=== PATIENT | male | born 1990 | race Caucasian/White ===

== ENCOUNTER 2020-09-14 19:50 | Emergency (ER) | payer MEDICARE ==
--- NOTE | 2020-09-14 20:28 | ER Document Report ---
ED Medical Screen (RME) - General Stated Complaint: POSSIBLE ABSCESS ON BOTTOX AND GROIN Time Seen by Provider: 09/14/20 20:19 Mode of Arrival: Ambulatory Information source: Patient Notes: HPI; 30-year-old male presents to the emergency room concerned about a possible abscess to his left buttock area that he has had for the past 3 days. No injury that he is aware of. No history of previous abscesses. States has been getting bigger and more painful. States his girlfriend tried to pop it without success. Denies any fevers. No nausea, no vomiting. PE: Alert and oriented x3. Lungs: Clear to auscultation without rales, rhonchi, wheezes. Heart: Regular rate rhythm without murmurs, rubs, gallops. Unable to do full exam in triage. I have greeted and performed a rapid initial assessment of this patient. A comprehensive ED assessment and evaluation of the patient, analysis of test results and completion of the medical decision making process will be conducted by additional ED providers. I have specifically instructed the patient or family members with the patient to immediately return to any nursing staff should anything change in the patient's condition or with their chief complaint. TRAVEL OUTSIDE OF THE [place] IN LAST 30 DAYS: No Physical Exam - Vital signs Vitals: Temp Pulse Resp BP Pulse Ox 98.6 F 87 20 138/61 H 98 09/14/20 20:00 09/14/20 20:00 09/14/20 20:00 09/14/20 20:00 09/14/20 20:00 Course - Vital Signs Vital signs: Temp Pulse Resp BP Pulse Ox 98.6 F 87 20 138/61 H 98 09/14/20 20:00 09/14/20 20:00 09/14/20 20:00 09/14/20 20:00 09/14/20 20:00
[2020-09-14] MEDS ORDERED: OXYCODONE-ACETAMINOPHEN 5-325 MG TABLET PO ONE (20:51)
[2020-09-14] MEDS ORDERED: LIDOCAINE 1%/EPINEPHRINE INJ 20 ML VIAL INJ ONE (20:51)
[2020-09-14] MEDS ORDERED: PROMETHAZINE HCL 25 MG TABLET PO ONE (20:51)
--- NOTE | 2020-09-14 20:53 | ER Document Report ---
ED Skin Rash/Insect Bite/Abscs - General Chief Complaint: Abscess Stated Complaint: POSSIBLE ABSCESS ON BOTTOX AND GROIN Time Seen by Provider: 09/14/20 20:19 Primary Care Provider: [facility] [Provider Group] - 09/16/20 Mode of Arrival: Ambulatory Notes: Patient is a 30-year-old male who comes emergency department for chief complaint of a suspected abscess to his left mid buttock area. This is been present for approximately 3 days and worsening with swelling and pain. Patient states that he has been cleaning this and putting warm compresses, he states he did get some mixed drainage out but this is still worsening. He denies fever/chills, nausea/vomiting, or any generalized sick symptoms. He states he has had abscesses in the axillary area in the past but they always resolved on their own. He denies any daily medications or diagnosed medical history. He denies any other complaints. TRAVEL OUTSIDE OF THE [place] IN LAST 30 DAYS: No - Related Data Allergies/Adverse Reactions: No Known Allergies Allergy (Verified 09/14/20 20:38) Past Medical History - General Information source: Patient - Social History Smoking Status: Current Every Day Smoker Frequency of alcohol use: None Drug Abuse: Marijuana Lives with: Family Family History: Reviewed & Not Pertinent Patient has homicidal ideation: No Review of Systems - Review of Systems Constitutional: No symptoms reported EENT: No symptoms reported Cardiovascular: No symptoms reported Respiratory: No symptoms reported Gastrointestinal: No symptoms reported Genitourinary: No symptoms reported Male Genitourinary: No symptoms reported Musculoskeletal: No symptoms reported Skin: See HPI Hematologic/Lymphatic: No symptoms reported Neurological/Psychological: No symptoms reported Physical Exam - Vital signs Vitals: Temp Pulse Resp BP Pulse Ox 98.6 F 87 20 138/61 H 98 09/14/20 20:00 09/14/20 20:00 09/14/20 20:00 09/14/20 20:00 09/14/20 20:00 - Notes Notes: GENERAL: Alert, interacts well. No acute distress. HEAD: Normocephalic, atraumatic. EYES: Pupils equal, round, and reactive to light. Extraocular movements intact. ENT: Oral mucosa moist, tongue midline. Oropharynx unremarkable. Airway patent. NECK: Full range of motion. Supple. Trachea midline. No lymphadenopathy. LUNGS: Clear to auscultation bilaterally, no wheezes, rales, or rhonchi. No respiratory distress. Non-tender chest wall. HEART: Regular rate and rhythm. No murmur ABDOMEN: Soft, non-tender. Non-distended. EXTREMITIES: Moves all 4 extremities spontaneously. No edema, normal radial and dorsalis pedis pulses bilaterally. No cyanosis. BACK: no cervical, thoracic, lumbar midline tenderness. No saddle anesthesia, normal distal neurovascular exam. Moves all extremities in full range of motion. NEUROLOGICAL: Alert and oriented x3. Normal speech. Cranial nerves II through XII grossly intact. Strength 5/5 in all extremities. PSYCH: Normal affect, normal mood. SKIN: In the left mid lower buttock there is a circular area with necrotic skin over the top, surrounding induration and mild surrounding erythema. There is no extending erythema down to the midline, there is no evidence of perianal abscess. No other concerning findings. Course - Re-evaluation Re-evalutation: Patient with necrotic skin over the top of an indurated abscess with mild surrounding cellulitis. This is most suggestive of MRSA infection. Patient with unremarkable vital signs, unremarkable exam otherwise, no concerning symptoms reported otherwise. Area was cut open by removing the core and tissue, there was some tunneling noted in the area was cleansed and packed. Air was dressed and patient was referred to the surgical clinic as well as placed on Bactrim. I discussed the care of the wound in detail, discussed follow-up instructions, discussed return precautions at length. Patient states understanding and agreement. - Vital Signs Vital signs: Temp Pulse Resp BP Pulse Ox 98.4 F 84 18 132/60 H 98 09/14/20 22:30 09/14/20 22:30 09/14/20 22:30 09/14/20 22:30 09/14/20 22:30 Procedures - Incision and Drainage Left buttock Type: Single Anesthetic type: 1% Lidocaine w/epi mL's of anesthetic: 8 Blade size: 11 I&D procedure: Shurclens applied, Iodoform packing placed, Sterile dressing applied Incision Method: Incision made with needle Amount/type of drainage: Minimal amount of purulent drainage and bleeding; necrotic tissue removed Discharge - Discharge Clinical Impression: Abscess Condition: Stable Disposition: HOME, SELF-CARE Instructions: Oral Narcotic Medication ([facility]) Additional Instructions: The abscess and tissue had to be opened, drained, removed. The area is been packed. It is important that the packing is removed in 3 days, do not l eave the packing in longer than 3 days, please follow-up with the surgical clinic to have this rechecked and for additional management. Take the antibiotics as prescribed to completion. Clean the area with soap and water, redress with gauze dressing. You have been provided with [place] pain medication to take especially obviously, you can take 1 to 2 tablets every 4-6 hours if needed. See narcotic medication instructions. Return if you worsen including spreading redness, increased swelling and pain, fever, vomiting, or any other concerning symptoms. Prescriptions: Sulfamethoxazole/Trimethoprim [Bactrim Ds Tablet] 1 each PO BID #14 tablet Forms: Return to Work Referrals: [facility] [Provider Group] - 09/16/20
[2020-09-14] MEDS ORDERED: HYDROCODONE/ACETAMINOPHEN 5-325 MG (6 TAB/ER DISP) PO PRN (22:06)
[2020-09-14] MEDS ORDERED: SULFAMETHOXAZOLE/TRIMETHOPRIM 800-160 MG TABLET PO ONE (22:06)
[2020-09-14 22:30] VITALS: BP 132/60
--- OUTSIDE RECORDS SUMMARY | 2020-09-16 14:47 | XMS REPORT ---
:1990 Author Organization [facility] Address [facility] [address] [place] [address] Care Team Providers Name Role Phone Unavailable Unavailable Unavailable Allergies, Adverse Reactions, Alerts Allergy Allergy Status Severity Reaction(s) Onset Inactive Treating C omments Name Type Date Date Clinician Suboxone Allergy to Active substance Medications This patient has no known medications. Problems Condition Condition Condition Status Onset Resolution Last Treatin g Comments Name Details Category Date Date Treatment Clinician Date Diabetes Diabetes Problem Active mellitus Mellitus 06-01 00:00: 00 Procedures This patient has no known procedures. Results This patient has no known results. Encounters Start End Encounter Admission Attending Care Care Encounter Date/Time Date/Time Type Type Clinicians Facility Department ID 2020-06-01 2020-06-01 Lalo Dickson [id number] 00:00:00 00:00:00 MD Alli: [facility] [place] [address] [facility], [place] [address], Ph. Social History Smoking Status Start Date Stop Date Heavy Tobacco Smoker Vital Signs Vital Name Observation Time Observation Value Comments Height 2020-06-01 00:00:00 67 [in_i] BMI (Body Mass Index) 2020-06-01 00:00:00 27.9 kg/m2 Body Weight 2020-06-01 00:00:00 178 [lb_av] Hospital Discharge Instructions None recorded. Discussion Note: None recorded. Patient educational handouts: No information available.
== END 2020-09-14 22:32 | disposition home or self-care (01) ==
LOC: ER 19:50
DX: L02.31 Cutaneous abscess of buttock (principal); F17.200 Nicotine dependence, unspecified, uncomplicated
CPT/HCPCS: 10060; 99283; J3490; A9270 ×4

== ENCOUNTER 2020-09-15 12:11 | Emergency (ER) | payer MEDICARE ==
[2020-09-15 12:16] VITALS: BP 121/70
--- NOTE | 2020-09-15 13:37 | ER Document Report ---
ED Suture/Wound Recheck - General Chief Complaint: Abscess Stated Complaint: POSSIBLE ABSCESS Time Seen by Provider: 09/15/20 13:23 Primary Care Provider: [facility] [Provider Group] - Follow up as needed Mode of Arrival: Ambulatory Information source: Patient Notes: 30-year-old male presents to ED for recheck of his abscess that was I&D yesterday. Packing has been removed. Patient has not started his antibiotics as yet. He states that he thinks that is a new abscess. I did have Dr. Jenkins, look and he agrees the patient just needs to soak the area and take his antibiotics as prescribed. He agrees there is no new abscess at this time. Will instruct patient on use of Epson salt soaks and to complete his antibiotics. REVIEW OF SYSTEMS: CONSTITUTIONAL : Denies fever, chills, or sweats. Denies recent illness. EENT: Denies eye, ear, throat, or mouth pain or symptoms. Denies nasal or sinus congestion. CARDIOVASCULAR: Denies chest pain. RESPIRATORY: Denies cough, cold, or chest congestion. Denies shortness of breath, difficulty breathing, or wheezing. GASTROINTESTINAL: Denies abdominal pain. Denies nausea, vomiting, or diarrhea. Denies constipation. Last BM: GENITOURINARY: Denies difficulty urinating, painful urination, burning, frequency, or blood in urine. FEMALE GENITOURINARY: Denies vaginal bleeding, abnormal or irregular periods. LMP: MUSCULOSKELETAL: Denies neck or back pain or joint pain or swelling. SKIN: Abscess to left buttocks has been I&D yesterday. It is still draining purulent drainage. It does need antibiotics and soaking as he was instructed. He has been instructed again. HEMATOLOGIC : Denies easy bruising or bleeding. LYMPHATIC: Denies swollen, enlarged glands. NEUROLOGICAL: Denies altered mental status or loss of consciousness. Denies headache. Denies weakness or paralysis or loss of use of either side. Denies problems with gait or speech. Denies sensory or motor loss. PSYCHIATRIC: Denies anxiety or stress or depression. ALL OTHER SYSTEMS REVIEWED AND NEGATIVE. VITAL SIGNS: Within normal limits. GENERAL: No acute distress, non-toxic appearance. HEAD: Normal with no signs of head trauma. EYES: PERRLA, EOMI, conjunctiva normal, no discharge. EARS: Hearing grossly intact. NOSE: Normal. THROAT: Oropharynx is normal. NECK: Normal range of motion, no tenderness, supple, no lymphadenopathy, No adenopathy, no JVD. CHEST: Clear breath sounds bilaterally. No wheezes, rales, or rhonchi. CARDIAC: Regular rate and rhythm. S1 and S2, without murmurs, gallops, or rubs. VASCULAR: No Edema. Peripheral pulses normal and equal in all extremities. ABDOMEN: Normal and soft with no tenderness, no masses or pulsatile masses. GASTROINTESTINAL: Bowel sounds normal GENITOURINARY: Normal, No tenderness LYMPATHTIC: No lymphadenopathy noted. MUSCULOSKELETAL: Good range of motion of all major joints. Extremities without clubbing, cyanosis or edema. NEUROLOGICAL: Alert and oriented x 3. No focal sensory or strength deficits. Speech normal. Follows commands appropriately. PSYCHIATRIC: Normal Affect, judgement and mood. SKIN: Red inflamed area surrounding the abscess patient has been instructed to please take antibiotics as ordered. He states there is another abscess and he does not like the decisions made. TRAVEL OUTSIDE OF THE [place] IN LAST 30 DAYS: No - HPI Previous ED treatment: I&D of abscess Antibiotics given previously: Prescription Quality of pain: Sharp, Throbbing Severity: Severe Pain Level: 5 Symptoms since procedure: Redness Exacerbated by: Sitting, Walking Relieved by: Denies - Related Data Allergies/Adverse Reactions: No Known Allergies Allergy (Verified 09/15/20 13:21) Past Medical History - General Information source: Patient - Social History Smoking Status: Current Every Day Smoker Frequency of alcohol use: None Drug Abuse: Marijuana Lives with: Family Family History: Reviewed & Not Pertinent Patient has suicidal ideation: No Patient has homicidal ideation: No - Past Medical History Cardiac Medical History: Reports: None Pulmonary Medical History: Reports: None EENT Medical History: Reports: None Neurological Medical History: Reports: None Endocrine Medical History: Reports: None Renal/ Medical History: Reports: None Malignancy Medical History: Reports None GI Medical History: Reports: None Musculoskeletal Medical History: Reports None Skin Medical History: Reports Hx Cellulitis Psychiatric Medical History: Reports: None Traumatic Medical History: Reports: None Infectious Medical History: Reports: None Surgical Hx: Negative Past Surgical History: Reports: None - Immunizations Immunizations up to date: Yes Hx Diphtheria, Pertussis, Tetanus Vaccination: Yes Physical Exam - Vital signs Vitals: Temp Pulse Resp BP Pulse Ox 98.3 F 86 16 121/70 100 09/15/20 12:15 09/15/20 12:15 09/15/20 12:15 09/15/20 12:15 09/15/20 12:15 Course - Re-evaluation Re-evalutation: 09/15/20 13:[address] Jenkins agreed patient needed to take his antibiotics as prescribed and to soak with Epson salt 3 times a day. Patient insists that there is another abscess and that this is not going to cure by taking the antibiotics and soaking it. Patient has been given instructions again to take the antibiotics but he states he is going to go to another hospital because we do not know what were talking about. Has called several family members while in the emergency room. - Vital Signs Vital signs: Temp Pulse Resp BP Pulse Ox 98.3 F 86 16 121/70 100 09/15/20 12:15 09/15/20 12:15 09/15/20 12:15 09/15/20 12:15 09/15/20 12:15 Discharge - Discharge Clinical Impression: Abscess Condition: Stable Disposition: HOME, SELF-CARE Additional Instructions: ABSCESS: You have an abscess (boil). This a pus-forming infection, usually due to staph. Some boils may be left to drain on their own, but most require lancing. From the time the tender lump first appears, it may be three or four days before the abscess is ready to terry. Local heat and rest help at this stage of treatment. An antibiotic may prevent spread of the infection. Once the abscess is opened, packing may be placed into it. This is done so pus is not sealed inside by premature closure of the cavity. The packing will be removed at your follow-up visit or you may be advised to remove it yourself at home. Sometimes this packing must be replaced a few times during healing. The wound will heal with surprisingly little scar. Depending on the size and location of an abscess, healing can take one to four weeks. You may shower and wash the area around the incision site two or three times a day. Antibiotics may be prescribed, but are usually not necessary after an abscess has been drained. If you develop fever, chills, worsening pain, or increasing swelling in the area, call the doctor or return immediately. TRIMETHOPRIM-SULFA: You have been given a prescription for trimethoprim-sulfa (TMS, Septra, Bactrim). This is a combination antibiotic of the sulfa class, often used for urinary tract infections, middle ear infections, bronchitis, shigella intestinal infection, and Pneumocystis pneumonia. TMS is usually well-tolerated. Occasional side effects include nausea and decreased appetite. Septra is not recommended for infants less than two months of age. Do not take this medication if you have experienced severe side effects or allergy to sulfa medicine. You should stop this medicine at once and contact your physician if you develop any rash, joint pain, shortness of breath, bruising, or jaundice (yellow color in the skin), or if you develop any other new or unusual symptoms. Epsom Salt Soaks Soak the wound area in a container of warm epsom salt water. If you can't get the wound area into a bucket or blackwell, use a folded towel soaked in the epsom salt solution and apply to the area. Use clean hot tap water (about the temperature of a very warm bath), mixing in about one (1) teaspoon for every pint of water. Two gallon --> 16 teaspoons Epsom Salts One gallon --> 8 teaspoons Epsom Salts Two quarts --> 4 teaspoons Epsom Salts One quart --> 2 teaspoons Epsom Salts Soak the wound for about 20 minutes while gently moving it around in the water. Repeat this four (4) times a day. FOLLOW-UP CARE: Most simple abscesses will not require a follow up visit. If you had packing placed in the abscess, remove it as instructed by the physician. If you have been referred to a physician for follow-up care, call the physicians office for an appointment as you were instructed or within the next two days. If you experience worsening or a significant change in your symptoms, return to the Emergency Department at any time for re-evaluation. Forms: Smoking Cessation Education Referrals: [facility] [Provider Group] - Follow up as needed
--- OUTSIDE RECORDS SUMMARY | 2020-09-16 15:39 | XMS REPORT ---
:1990 Author Organization [facility] Address [facility] [address] [place] [address] Care Team Providers Name Role Phone Unavailable [...] Dickson [id number] 00:00:00 00:00:00 MD Alli: [facility] [place] [address] [facility], [place] [address], Ph. Social History Smoking Status Start Date Stop Date Heavy Tobacco Smoker Vital Signs Vital Name Observation Time Observation Value Comments Height 2020-06-01 00:00:00 67 [in_i] BMI (Body Mass Index) 2020-06-01 00:00:00 27.9 kg/m2 Body Weight 2020-06-01 00:00:00 178 [lb_av] Hospital Discharge Instructions None recorded. Discussion Note: None recorded. Patient educational handouts: No information available.
== END 2020-09-15 13:42 | disposition home or self-care (01) ==
LOC: ER 12:11
DX: L02.31 Cutaneous abscess of buttock (principal); T36.96XA Underdosing of unspecified systemic antibiotic, initial encounter; Z91.14 Patient's other noncompliance with medication regimen; Z98.890 Other specified postprocedural states; F17.200 Nicotine dependence, unspecified, uncomplicated; F12.10 Cannabis abuse, uncomplicated
CPT/HCPCS: 99282